=== PATIENT | female | born 1985 | race Caucasian/White ===

== ENCOUNTER → 2019-10-23 10:14 | Outpatient (CLI) | payer BC, SELFPAY ==
--- NOTE | 2019-10-23 | DI.RAD.S_ITS ---
PROCEDURE: XR LUMBAR SPINE 2-3V INDICATIONS: numbness, pain lower leg left TECHNIQUE: 3 views of the lumbar spine were acquired. COMPARISON: None. FINDINGS: Bones: There are 5 lumbar-type vertebral bodies. The lowest intervertebral disk space is designated as L5-S1. The vertebral body heights are well-maintained without evidence to suggest an acute compression fracture. The bone mineralization is within normal limits. Mild degenerative changes of the lower lumbar spine are present with disc height loss and facet arthrosis best appreciated L5-S1. Soft tissues: A moderate amount of residual stool is seen within the colon. Surgical clips are seen within the right hemipelvis. soft tissues of the imaged abdomen and pelvis are within normal limits. IMPRESSION: Mild degenerative changes of the lower lumbar spine. Dictated by: Chalo Brown M.D. on 10/23/2019 at 9:48 Approved by: Chalo Brown M.D. on 10/23/2019 at 9:52
== END ==
PROVIDERS: Visit Provider Student in an Organized Health Care Education/Training Program
DX: R20.0 Anesthesia of skin (principal); M47.817 Spondylosis without myelopathy or radiculopathy, lumbosacral region; M79.662 Pain in left lower leg
CPT/HCPCS: 72100